=== PATIENT | female | born 1955 | race Caucasian/White ===

== ENCOUNTER 2021-12-25 13:16 | Outpatient (CLI) | payer MEDICARE, SELFPAY | END 2021-12-25 13:17 | disposition home or self-care (01) | LOC: ANHAUDASC 13:18 | PROVIDERS: PCP Internal Medicine; Visit Provider Otolaryngology | DX: H91.93 Unspecified hearing loss, bilateral (principal) | CPT/HCPCS: 92557; 92567 ==

== ENCOUNTER → 2022-01-29 13:47 | Outpatient (CLI) | payer MEDICARE, SELFPAY ==
--- NOTE | ~2022-01-29 | MM_ITS ---
EXAMINATION: MM screening luis a BI w young HISTORY: Screening TECHNIQUE: Craniocaudal and mediolateral oblique 3-D tomosynthesis images were obtained and synthetic 2-D images were generated. CAD analysis was submitted and interpreted. COMPARISON: No prior studies for comparison. BREAST PARENCHYMAL COMPOSITION: The breasts are heterogeneously dense, which may obscure small masses . FINDINGS: There are bilateral breast asymmetries inferiorly on MLO views and also superiorly on left MLO view. There are no suspicious calcifications. IMPRESSION: 1. Bilateral breast asymmetries. 2. Additional mammographic views and possible breast ultrasound are recommended. BI-RADS Category 0: Incomplete: Needs additional imaging evaluation. Reviewed, dictated and finalized at location A. IMPRESSION: 1. Bilateral breast asymmetries. 2. Additional mammographic views and possible breast ultrasound are recommended . BI-RADS Category 0: Incomplete: Needs additional imaging evaluation.
== END ==
PROVIDERS: PCP Internal Medicine; Visit Provider Obstetrics & Gynecology
DX: Z12.31 Encounter for screening mammogram for malignant neoplasm of breast (principal); R92.8 Other abnormal and inconclusive findings on diagnostic imaging of breast
CPT/HCPCS: 77063; 77067

== ENCOUNTER → 2022-02-20 08:02 | Outpatient (CLI) | payer MEDICARE, SELFPAY ==
--- NOTE | ~2022-02-20 | MMUS_ITS ---
EXAMINATION: MM diagnostic luis a BI w young, US breast BI complete HISTORY: Follow-up bilateral breast asymmetries TECHNIQUE: Additional 3-D tomosynthesis images of the breasts were performed and synthetic 2-D images were generated. CAD analysis was submitted and interpreted. High resolution bilateral complete breas t ultrasound was performed. COMPARISON: Comparison to multiple prior studies sequentially, with oldest reviewed study dated 05/29. BREAST PARENCHYMAL COMPOSITION: Breast composed of scattered areas of fibroglandular density. FINDINGS: MAMMOGRAPHIC FINDINGS: There are scattered nodular asymmetries in the right breast which are obscured by dense fibroglandula r tissue. There are new nodular asymmetries of the left breast superiorly and inferiorly on medial la teral view which are not well demonstrated on prior CC view. There are benign bilateral breast calcif ications. No architectural distortion. ULTRASOUND: Complete bilateral US of all 4 quadrants of the breasts and retroareolar region was reviewed. Right breast: There are multiple cysts. There is mildly prominent ducts at 7:00, 7 cm from the nipple . At 8:00, 6 cm from the nipple there is an oval hypoechoic mass measuring up to 5 mm without interna l vascularity or posterior features, likely benign. Left breast: At 1:00, 4 cm from the nipple, there is an oval hypoechoic mass without internal vascula rity or significant posterior features measuring 2-3 mm. At 3:00 near the areola there is a oval 4 mm hypoechoic mass with low level internal echoes, no internal vascularity. No significant posterior sh adowing. At 4:00, 4 cm from the nipple there is an oval hypoechoic mass with internal cystic changes, likely benign cluster of microcysts measuring up to 1 cm. This likely corresponds to the inferior le patricia seen on left medial lateral view. IMPRESSION: 1. Probable benign bilateral breast masses. 2. Recommend 6 month follow-up diagnostic bilateral mammogram and ultrasound. BI-RADS category 3, probably benign findings. Reviewed, dictated and finalized at location A. IMPRESSION: 1. Probable benign bilateral breast masses. 2. Recommend 6 month follow-up diagnostic bilateral mammogram and ultrasound. BI-RADS category 3, probably benign findings.
== END ==
PROVIDERS: PCP Internal Medicine; Visit Provider Obstetrics & Gynecology
DX: R92.8 Other abnormal and inconclusive findings on diagnostic imaging of breast (principal)
CPT/HCPCS: 76641; 77062; 77066; G0279

== ENCOUNTER → 2022-10-15 08:56 | Outpatient (CLI) | payer MEDICARE, SELFPAY ==
--- NOTE | ~2022-10-15 | MMUS_ITS ---
EXAMINATION: MM diagnostic luis a BI w young, US breast BI limited HISTORY: Follow-up for probably benign bilateral breast masses TECHNIQUE: Craniocaudal, mediolateral, and mediolateral oblique 3-D tomosynthesis images of the jc ts were performed and synthetic 2-D images were generated. CAD analysis was submitted and interpreted . High resolution limited bilateral breast ultrasound was performed. COMPARISON: 02/20/2022, 01/29/2022, 09/21/2020, 07/23/2019 BREAST PARENCHYMAL COMPOSITION: There are scattered areas of fibroglandular density. FINDINGS: MAMMOGRAPHIC FINDINGS: Obscured bilateral breast masses are stable to slightly decreased in size. None demonstrate suspiciou s interval change. No suspicious calcification or architectural distortion are identified. ULTRASOUND: Right breast: A 3 mm hypoechoic mass at 8:00 location, 6 cm from the nipple previously measured 5 mm. There is a stable 3 mm round mass at the 6:00 location, 4 cm from the nipple. Left breast: There is a stable 3 mm round mass at the 3:00 location near the nipple. A 9 mm x 3 mm ma ss at the 4:00 location, 4 cm from the nipple previously measured up to 10 mm. IMPRESSION: 1. Stable to decreased, probably benign bilateral breast masses. 2. Recommend 6 month follow-up bilateral diagnostic mammogram and ultrasound. BI-RADS category 3, probably benign findings. Reviewed, dictated and finalized at location A. IMPRESSION: 1. Stable to decreased, probably benign bilateral breast masses. 2. Recommend 6 month follow-up bilateral diagnostic mammogram and ultrasound. BI-RADS category 3, probably benign findings.
== END ==
PROVIDERS: PCP Internal Medicine; Visit Provider Obstetrics & Gynecology
DX: R92.8 Other abnormal and inconclusive findings on diagnostic imaging of breast (principal)
CPT/HCPCS: 76642; 77062; 77066; G0279

== ENCOUNTER → 2023-02-25 14:14 | Outpatient (CLI) | payer MEDICARE, SELFPAY ==
--- NOTE | ~2023-02-25 | MR_ITS ---
MRI of the cervical spine Clinical History: Cervical disc disorder Technique: Axial T2-weighted and gradient images, and sagittal T1-weighted, T2-weighted, and STIR la ges were acquired. Findings: There is no fracture. There is 2 mm anterolisthesis of C4 over C5. There is moderate degene rative disc narrowing at C5-C6 and C6-C7. No suspicious bone marrow signal reality evident. At C2-C3, there is no disc bulge or herniation. No spinal canal stenosis, cord compression, or neural foraminal narrowing. At C3-C4, there is no disc bulge or herniation. No central canal stenosis or cord compression. There is right facet arthropathy with possible minimal right neural foraminal narrowing. Left neural forame n preserved. At C4-C5, there is minimal disc osteophyte complex. No spinal canal stenosis or cord compression. The re is right neural foraminal narrowing with right facet arthropathy. Left neural foramen preserved. At C5-C6, there is mild disc osteophyte complex. There is possible minimal canal stenosis without fra nk cord compression. There is probable minimal bilateral neural foraminal narrowing with mild facet a rthropathy bilaterally. At C6-C7, there is minimal disc osteophyte complex. No canal stenosis or cord compression. There is p robable minimal bilateral neural foraminal narrowing. No abnormal signal evident in the spinal cord. Paravertebral soft tissues are unremarkable. Impression: Mild degenerative spondylosis, as above. 2 mm anterolisthesis of C4 over C5. Reviewed, dictated and finalized at [facility]. Impression: Mild degenerative spondylosis, as above. 2 mm anterolisthesis of C4 over C5.
== END ==
PROVIDERS: PCP Internal Medicine; Visit Provider Chiropractor
DX: M50.90 Cervical disc disorder, unspecified, unspecified cervical region (principal); M47.892 Other spondylosis, cervical region
CPT/HCPCS: 72141

== ENCOUNTER 2023-11-20 09:21 | Outpatient (CLI) | payer MEDICARE, SELFPAY ==
--- NOTE | 2023-11-20 09:35 | ECHO_ITS ---
Patient Info Name: Estefani Zamudio Age: 68 years : 1955 Gender: Female Ht: 62 in Wt: 136 lbs BSA: 1.65 m2 HR: 60 bpm BP: 122 / 63 mmHg Technical Quality: Good Exam Date: 11/20/2023 9:49 AM Exam Location: Echo Lab Patient Status: Outpatient Admit Date: 11/20/2023 Staff Ordering Physician: Paul Parra MD Courtesy Clerk: Tico Albright RDCS Attending Provider: Paul Parra MD Referring Physician: Aida MENA; Exam Type: CA echo doppler color flow Study Info Indications R01.1 - Cardiac murmur, unspecified Complete two-dimensional, color flow and Doppler transthoracic echocardiogram is performed. Summary 1. Complete two-dimensional, color flow and Doppler transthoracic echocardiogram is performed. 2. Left ventricular chamber dimension is normal. 3. Left ventricular systolic function is normal, estimated at 60-65%. 4. The left ventricular diastolic function is abnormal. 5. E/e' 11 is mildly elevated. 6. Left atrial chamber dimension is mildly enlarged. 7. There is trace tricuspid valve regurgitation. 8. No pulmonary hypertension, estimated pulmonary arterial systolic pressure is 11 mmHg. Left Ventricle E/e' 11 is mildly elevated. Left ventricular chamber dimension is normal. Left ventricular systolic function is normal, estimated at 60-65%. The left ventricular diastolic function is abnormal. Right Ventricle Right ventricular systolic function is normal and with normal TAPSE 1.8 cm. Right ventricular chamber dimension is normal. Left Atria Left atrial chamber dimension is mildly enlarged. Right Atria Right atrial chamber dimension is normal. Aortic Valve The aortic valve is trileaflet. There is no aortic valve stenosis. There is no aortic valve regurgitation. Pulmonic Valve There is no pulmonic regurgitation. Mitral Valve There is no mitral valve stenosis. There is no mitral valve regurgitation. Tricuspid Valve There is trace tricuspid valve regurgitation. No pulmonary hypertension, estimated pulmonary arterial systolic pressure is 11 mmHg. Pericardium/Pleural There is no pericardial effusion. Inferior Vena Cava Normal inferior vena cava with >50% collapse upon inspiration consistent with normal right atrial pressure, 5 mmHg. Aorta The aortic root size at the sinus of Valsalva is normal. Left Ventricular Outflow Tract Name Value Normal LVOT 2D LVOT Diameter 1.8 cm LVOT Doppler LVOT Peak Gradient 4 mmHg LVOT Mean Gradient 2 mmHg LVOT VTI 23 cm LVOT VTI/AV VTI Ratio 0.9 LVOT Stroke Volume 60 ml LVOT CO 3.8 l/min LVOT CI 2.3 l/min/m2 Pulmonic Valve Name Value Normal PV Doppler PV Peak Gradient 2 mmHg Mitral Valve
== END 2023-11-20 09:22 | disposition home or self-care (01) ==
PROVIDERS: PCP Internal Medicine; Visit Provider Internal Medicine
DX: I51.89 Other ill-defined heart diseases (principal); R01.1 Cardiac murmur, unspecified; Z86.79 Personal history of other diseases of the circulatory system
CPT/HCPCS: 93306

== ENCOUNTER 2024-08-22 14:59 | Outpatient (CLI) | payer MEDICARE, SELFPAY ==
--- NOTE | ~2024-08-22 | XR_ITS ---
EXAM: XR hand LT 2V, XR wrist LT 2V DATE: 08/22/2024 15:18 HISTORY: pain for a year; no injury . COMPARISON: None available. FINDINGS: Normal mineralization. Scapholunate widening. The scapholunate angle measures 100 degrees. No osseous fracture detected. No lytic or blastic lesion. Scattered mild arthritic changes in the morrison nd and wrist, typical of osteoarthritis. No erosion or periosteal change. Soft tissues within normal limits. IMPRESSION: Scapholunate ligament injury, with dorsal intercalated segment instability (DISI), presum ably chronic unless there is a history of recent injury. Reviewed, dictated and finalized at location K. CARRIER DRIVER IMPRESSION: Scapholunate ligament injury, with dorsal intercalated segment inst ability (DISI), presumably chronic unless there is a history of recent injury.
--- OUTSIDE RECORDS SUMMARY | 2024-08-22 17:31 | XMS_ITS | Referral Summary ---
Author Organization [facility] Address [address] [place] [address] Care Team Providers Care Size Mixer Name Role Phone Paul Parra MD Primary Care Provider [phone] Shlomo Woodard MD Unavailable [phone] Source Comments [facility],non-owned Affiliates and Associated Physician Practices is amultiple site organization consisting of ambulatory clinics and hospital sitesin [place], [place], [place] and [place]. This disclosure is being madepursuant to the Care Everywhere program and may not contain all information available regarding this patient. Last updated 18.[facility] Encounters Date Type Department Care Team Description 08/10/2024 Telephone [facility] [address] [place] [address], [address] [place] [phone] Shlomo Woodard MD Results (CA 125 normal ) 08/08/2024 Travel 08/08/2024 11:30 AM RIB PULLER Office Visit [facility] [address] [place] [address], [address] [place] [phone] Shlomo Woodard MD Ovarian mass, right (Primary Dx) 08/08/2024 11:00 AM RIB PULLER OBGYN RADIOLOGY [facility] [address] [place] [address], [address] [place] [address] Ovarian mass, right from Last 3 Months Allergies No known active allergies Medications * Be aware that medications may not be up to date on this document. Always verify current medications with the patient. Medication Sig Dispensed Refills Start Date End Date Status atenolol (TENORMIN) 25 MG tablet 07/04/2018 Active lamoTRIgine (LAMICTAL) 200 MG tablet 07/17/2019 Active Bempedoic Acid-Ezetimibe (NEXLIZET) 180-10 MG TABS Active omeprazole (PRILOSEC) 20 MG capsule 08/28/2021 Active clonazePAM (KlonoPIN) 1 MG tablet 01/16/2021 Active Femring 0.05 MG/24HR ringIndications:Menop ausal symptoms INSERT 1 RING VAGINALLY AND REPLACE EVERY 90 DAYS 1 Each 3 10/19/2023 Active Active Problems Problem Noted Date Diagnosed Date Menopausal symptoms 06/19/2016 Social History Tobacco Use Types Packs/Day Years Used Date Smoking Tobacco: Never Smokeless Tobacco: Never Tobacco Cessation:Counseling Given: Not Answered Alcohol Use Standard Drinks/Week Comments Yes 1 (1 standard drink = 0.6 oz pur e alcohol) PHQ-2 Answer Date Recorded Patient Health Questionnaire-2 Score 0 08/07/2024 Sex and Gender Information Value Date Recorded Sex Assigned at Not on file Gender Identity Not on file Sexual Orientation Not on file Last Filed Vital Signs Vital Sign Reading Time Taken Comments Blood Pressure 110/60 08/08/2024 11:31 AM RIB PULLER Pulse - - Temperature - - Respiratory Rate - - Oxygen Saturation - - Inhaled Oxygen Concentration - - Weight 61.7 kg (136 lb) 08/08/2024 11:31 AM RIB PULLER Height 157 cm (5' 1.81 ) 08/08/2024 11:31 AM RIB PULLER Body Mass Index 25.03 08/08/2024 11:31 AM RIB PULLER Plan of Treatment Upcoming Encounters Date Type Department Care Team (Late st Contact Info) Description 02/07/2025 11:00 AM CDT OBGYN RADIOLOGY [facility] [address] [place] [address], [address] [phone] 02/07/2025 11:30 AM CDT Office Visit [facility] [address] [place] [address], [address] [phone] Shlomo Woodard MD [address] [place] [address] [address] [place] [address] Procedures Procedure Name Priority Date/Time Associated Diagnosis Comments CANCER ANTIGEN (CA)125 BLOOD Routine 08/08/2024 12:00 PM RIB PULLER Ovarian mass, right NON-OB PELVIC SONOGRAM Routine 08/08/2024 11:08 AM RIB PULLER Ovarian mass, right MAMMO BILAT SCREENING Routine 11/11/2023 Well woman exam DEXA BONE DENSITY AXIAL SKELETON Routine 09/21/2020 Well woman exam from Last 3 Months or Most Recently Relevant to Health Maintenance Results * CANCER ANTIGEN (CA)125 BLOOD (08/08/2024 12:00 PM RIB PULLER) Pathologist [facility] CA 125 7.7 0.0 - 38.1 U/mL [facility] ACCOUNT BILL Comment: [facility] Electrochemiluminescence Immunoassay (ECLIA) Values obtained with different assay methods or kits cannot be used interchangeably. Results cannot be interpreted as absolute evidence of the presence or absence of malignant disease. Blood BLOOD SPECIMEN / Unknown 08/08/2024 12:00 PM RIB PULLER 08/08/2024 Narrative [facility] ACCOUNT BILL - 08/09/2024 1:07 PM RIB PULLER Performed at: [facility] [id number] System Developer Associate Manager: Bharat Ace PhD, Phone: [phone] Shlomo Woodard MD LAB - CHEMISTRY ORD ERABLES [facility] ACCOUNT BILL [address] [place] [address] * NON-OB PELVIC SONOGRAM (08/08/2024 11:08 AM RIB PULLER) Linked Results Indication ======== Post menopausal. Follow-up on ovarian cyst Method ====== Transabdominal and transvaginal ultrasound Uterus ====== Visualized total hysterectomy noted Position: surgically absent Right Ovary ========= Visualized. Size 25 mm x 15 mm x 10 mm Cyst(s) Size 7.4 mm x 9.0 mm x 9.0 mm. Mean 8.5 mm. Vol 0.314 cm Left Ovary ======== Not visualized, Surgically absent Cul de Sac ========= Visualized. No free fluid visualized Impression ========= The uterus is not seen today consistent with her history of prior surgical removal. The left ovary is not seen today consistent with her history or prior surgical removal. The right ovary is seen normal in size and contains a small anechoic cystic mass that has a benign appearance based on negative color doppler flow. There is no free fluid present in the cul de sac. Coding ====== Procedures 19729: US Transvaginal Non OB [employer] PACS Anatomical Region Laterality Modality Other 08/08/2024 11:0 8 AM RIB PULLER Shlomo Woodard MD [facility] ORDERABLES * MAMMO BILAT SCREENING (11/11/2023) Anatomical Region Laterality Modality Breast Bilateral Mammography 11/11/2023 Shlomo Woodard MD MAMMO ORDERABLES * DEXA BONE DENSITY AXIAL SKELETON (09/21/2020) Anatomical Region Laterality Modality Other Shlomo Woodard MD DEXA ORDERABLES from Last 3 Months or Most Recently Relevant to Health Maintenance Care Teams Size Mixer Relationship Specialty Start Date End Date Paul Parra MD [address] [place] [address] PCP - General Internal Medicine 06/19/16 Shlomo Woodard MD [address] [phone] Obstetrics and Gynecology 01/14/21
--- OUTSIDE RECORDS SUMMARY | 2024-08-22 17:31 | XMS_ITS | Clinical Summary ---
Author Organization [facility] Address [address] [place] [address] Phone Care Team Providers Care Reservoir Engineering Consultant Name Role Phone Shlomo Woodard MD Primary Care Provider Allergies No known active allergies Medications NIACIN/LOVASTAT IN (ADVICOR PO) Take by mouth. Active ATENOLOL (TENORMIN PO) Take by mouth. Active FLUOXETINE HCL (FLUOXETINE PO) Take by mouth. Active CLONAZEPAM (KLONOPIN PO) Take by mouth. Active predniSONE (DELTASONE) 5 mg tablet Take 2 tablets by mouth on days 1-4, then take 1 tablet by mouth on days 5-7. Take in the morning. 11 Tablet 11/28/2021 9:30 AM CDT 11/28/2021 Active neomycin-polymy israel-dexAMETHaso ne (Maxitrol) 3.5mg/mL-10,000 unit/mL-0.1 % suspension Instill 1 drop into both eyes three times a day shake well 5 mL 01/08/2023 4:40 PM CDT 01/08/2023 Active fluorometholone (FML) 0.1 % suspension Instill 1 drop into both eyes twice a day. SHAKE WELL 5 mL 02/09/2023 2:24 PM CDT 02/09/2023 Active Active Problems Patient Care Coordination No te Formatting of this note migh t be different from the original. Primary Care: Shlomo Woodard MD Referring Provider:Azar Contreras Other: Problem Noted Date Diagnosed Date Abnormal mammogram, unspecified 04/30/2009 HTN (hypertension) Anxiety MVP (mitral valve prolapse) Family History Medical History Relation Name Comments Heart Disease Father Stroke Father Heart Disease Mother Hypertension Mother Relation Name Status Comments Father Mother Alive Social History Tobacco Use Types Packs/Day Years Used Date Smoking Tobacco: Never Alcohol Use Standard Drinks/Week Comments Yes 0 (1 standard drink = 0.6 oz pur e alcohol) rarely Comments No Sex and Gender Information Value Date Recorded Sex Assigned at Not on file Legal Sex Female 5:48 AM APPEALS ANALYST Gender Identity Not on file Sexual Orientation Not on file Last Filed Vital Signs Vital Sign Reading Time Taken Comments Blood Pressure 128/70 04/30/2009 10:07 AM APPEALS ANALYST Pulse - - Temperature - - Respiratory Rate - - Oxygen Saturation - - Inhaled Oxygen Concentration - - Weight 63.5 kg (140 lb) 04/30/2009 10:07 AM APPEALS ANALYST Height 157.5 cm (5' 2 ) 04/30/2009 10:07 AM APPEALS ANALYST Body Mass Index 25.61 04/30/2009 10:07 AM APPEALS ANALYST Plan of Treatment Health Maintenance Due Date Last Done Comments DTAP/TDAP/TD VACCINES (1 - Tdap) 09/24/1974 COLORECTAL SCREENING 09/24/2000 Colorectal Cancer Screening 09/24/2000 FIT-DNA Q 3 years 09/24/2000 FIT/FOBT Q 1 year 09/24/2000 Flex Sig/CT Colonography Q 5 years 09/24/2000 PNEUMOCOCCAL VACCINE 65+ YEA RS (1 of 1 - PCV) 09/24/2005 ZOSTER VACCINE (1 of 2) 09/24/2005 BREAST CANCER SCREENING 04/30/2010 04/30/20, 04/16/2009, 11/17/2007, Additional history exists OSTEOPOROSIS SCREENING 09/24/2020 INFLUENZA VACCINE (#1) 2024 RSV VACCINE (60+ or ) (1 - 1-dose 75+ series) 09/24/2030 Procedures Procedure Name Priority Date/Time Associated Diagnosis Comments MAMMO DIAGNOSTIC UNI RIGHT W OR WO CAD Routine 04/30/2009 from Last 3 Months or Most Recently Relevant to Health Maintenance Results * MAMMO DIGITAL DIAG UNI RIGHT (04/30/2009) Anatomical Region Laterality Modality Breast Right Other us Alicia Schaeffer MD MAMMO ORDERABLES Final Resul t from Last 3 Months or Most Recently Relevant to Health Maintenance Insurance RX [employer] RX Member Subscriber Plan / Payer (Ef fective 2021-Present) Name:KAMRAN PRITCHARD Relation to Subscriber:Self Name:Fran Pritchardu Payer ID:Not on file Group ID:[id number] Type:RX Medicare Part D Address: [address] Care Teams Reservoir Engineering Consultant Relationship Specialty Start Date End Date Shlomo Woodard MD PCP - General 05/08/15
--- OUTSIDE RECORDS SUMMARY | 2024-08-22 17:31 | XMS_ITS | Clinical Summary ---
Author Organization [address] Address [address] [place] [phone] Care Team Providers Care Airframe Design Engineer Name Role Phone Paul Parra MD Primary Care Provider [phone] Social History Tobacco Use Types Packs/Day Years Used Date Smoking Tobacco: Never Assessed Personal Safety Answer Date Recorded Getting School Help Needed Not on file 09/11 Comments Unknown Sex and Gender Information Value Date Recorded Sex Assigned at Not on file Legal Sex Female 12:44 AM BASKETBALL COACH Gender Identity Not on file Sexual Orientation Not on file Plan of Treatment Not on file Insurance MEDICARE [facility] MED[facility] Address: [address] [phone] Care Teams Airframe Design Engineer Relationship Specialty Start Date End Date Paul Parra MD [address] [place] [address] PCP - General Internal Medicine 01/16/23
--- OUTSIDE RECORDS SUMMARY | 2024-08-22 17:31 | XMS_ITS | Referral Summary ---
Author Organization [address] Address [address] [place] [phone] Care Team Providers Care Street Department Dispatcher Name Role Phone Paul Parra MD Primary Care Provider [phone] Social History Tobacco Use Types Packs/Day Years Used Date Smoking Tobacco: Never Assessed Personal Safety Answer Date Recorded Getting School Help Needed Not on file 09/11 Comments Unknown Sex and Gender Information Value Date Recorded Sex Assigned at Not on file Legal Sex Female 12:44 AM MANAGER STATISTICS Gender Identity Not on file Sexual Orientation Not on file Plan of Treatment Not on file Insurance MEDICARE [facility] MEDICARE Address: [address] [address] Department Dispatcher Relationship Specialty Start Date End Date Paul Parra MD [address] [place] [address] PCP - General Internal Medicine 01/16/23
--- OUTSIDE RECORDS SUMMARY | 2024-08-22 17:31 | XMS_ITS | Clinical Summary ---
Author Organization [facility] I Do Now I Don't Address [address] [place] [address] Care Team Providers Care Dry Wall Applicator Name Role Phone Paul Parra MD Primary Care Provider [phone] Shlomo Woodard MD Unavailable [phone] Source Comments [facility],non-owned Affiliates and Associated Physician Practices is amultiple site organization consisting of ambulatory clinics and hospital sitesin [place], [place], [place] and [place]. This disclosure is being madepursuant to the Care Everywhere program and may not contain all information available regarding this patient. Last updated 18.[facility] Allergies No known active allergies Medications * Be aware that medications may not be up to date on this document. Alwaysverify current medications with the patient. Medication Sig [...] Noted Date Diagnosed Date Menopausal symptoms 06/19/2016 Encounters Date Type Department Care Team Description 08/10/2024 Telephone [facility] - [employer] [address], [address] [address] Shlomo Woodard MD Results (CA 125 normal ) 08/08/2024 11:30 AM MEDICARE BILLER Office Visit [facility] [employer] SCI[employer]ER[address], [address] [address] Shlomo Woodard MD Ovarian mass, right (Primary Dx) 08/08/2024 11:00 AM MEDICARE BILLER OBGYN RADIOLOGY [facility] [employer]ER[address], [address] [address] Ovarian mass, right 08/08/2024 Travel from Last 3 Months Social History Tobacco Use Types Packs/Day Years [...] Comments Blood Pressure 110/60 08/08/2024 11:31 AM MEDICARE BILLER Pulse - - Temperature - - Respiratory Rate - - Oxygen Saturation - - Inhaled Oxygen Concentration - - Weight 61.7 kg (136 lb) 08/08/2024 11:31 AM MEDICARE BILLER Height 157 cm (5' 1.81 ) 08/08/2024 11:31 AM MEDICARE BILLER Body Mass Index 25.03 08/08/2024 11:31 AM MEDICARE BILLER Plan of Treatment Upcoming Encounters Date Type Department Care Team (Late st Contact Info) Description 02/07/2025 11:00 AM CDT OBGYN RADIOLOGY [facility] - [employer]ER[address], [address] [address] 02/07/2025 11:30 AM CDT Office Visit [facility] [employer] SCI[employer]ER[address], [address] [address] Shlomo Woodard MD [address] [place] [address] Health Maintenance Due Date Last Done Comments COLOGUARD (AGES 45-75) - COLON CA SCREENING 1955 COLON MONITORING 1955 COLONOSCOPY - COLON CA SCREENING 1955 CT COLONOGRAPHY - COLON CA SCREENING 1955 Colorectal Cancer Screening 1955 FIT - COLON CA SCREENING 1955 FLEX SIG - COLON CA SCREENING 1955 LIPID TESTING 1955 HEPATITIS C SCREENING 09/20/1973 DTAP/TDAP/TD VACCINES (1 - Tdap) 09/24/1974 PNEUMOCOCCAL VACCINE 50+ (1 of 1 - PCV) 09/24/2005 ZOSTER VACCINE (1 of 2) 09/24/2005 SCREENING FOR DIABETES 10/19/2023 COVID-19 VACCINE (1 - season) 2024 INFLUENZA VACCINE (#1) 2024 MEDICARE AWV CALENDAR YEAR 2024 MAMMOGRAM 11/10/2025 11/11/2023, 10/27, 11/11/2023, Additional history exists Respiratory Syncytial Virus (RSV) Vaccine Pt: or over 60 yrs (1 - 1-dose 75+ series) 09/24/2030 BONE DENSITY TESTING Completed 09/21/2020 DEPRESSION SCREENING Completed 08/08/2024, 08/10/2023, 07/21/2022, Additional history exists HEPATITIS B VACCINE Aged Out No longe r eligible based on patient's age to complete this topic HIB VACCINE Aged Out No longer eligi ble based on patient's age to complete this topic HPV VACCINE Aged Out No longer eligi ble based on patient's age to complete this topic MENINGOCOCCAL (Group B) VACCINE Aged Out No longer eligible based on patient's age to complete this topic MENINGOCOCCAL VACCINE Aged Out No annie carroll eligible based on patient's age to complete this topic Procedures Procedure Name Priority Date/Time Associated Diagnosis Comments CANCER ANTIGEN (CA)125 BLOOD Routine 08/08/2024 12:00 PM MEDICARE BILLER Ovarian mass, right NON-OB PELVIC SONOGRAM Routine 08/08/2024 11:08 AM MEDICARE BILLER Ovarian mass, right MAMMO BILAT SCREENING Routine 11/11/2023 Well woman exam DEXA BONE DENSITY AXIAL SKELETON Routine 09/21/2020 Well woman exam from Last 3 Months or Most Recently Relevant to Health Maintenance Results * CANCER ANTIGEN (CA)125 BLOOD (08/08/2024 12:00 PM MEDICARE BILLER) Pathologist [facility] [place] 125 7.7 0.0 - 38.1 U/mL [facility] ACCOUNT BILL Comment: [facility] Electrochemiluminescence Immunoassay (ECLIA) Values obtained with different assay methods or kits cannot be used interchangeably. Results cannot be interpreted as absolute evidence of the presence or absence of malignant disease. Blood BLOOD SPECIMEN / Unknown 08/08/2024 12:00 PM MEDICARE BILLER 08/08/2024 Narrative [facility] ACCOUNT BILL - 08/09/2024 1:07 PM MEDICARE BILLER Performed at: - Lab[address] [id number] Thread Dresser: Bharat Ace PhD, Phone: [phone] Shlomo Woodard MD LAB - CHEMISTRY ORD ERABLES [facility] ACCOUNT BILL [address] [place] [address] * NON-OB PELVIC SONOGRAM (08/08/2024 11:08 AM MEDICARE BILLER) Pathologist [facility] Linked Results Indication ======== Post menopausal. Follow-up [...] the [place]. Coding ====== Procedures 86073: US Transvaginal Non OB [facility] PACS Anatomical Region Laterality Modality Other 08/08/2024 11:0 8 AM MEDICARE BILLER Shlomo Woodard MD [facility] ORDERABLES * MAMMO BILAT SCREENING (11/11/2023) Anatomical Region Laterality Modality Breast Bilateral Mammography 11/11/2023 Shlomo Woodard MD MAMMO ORDERABLES * DEXA BONE DENSITY AXIAL SKELETON (09/21/2020) Anatomical Region Laterality Modality Other Shlomo Woodard MD DEXA ORDERABLES from Last 3 Months or Most Recently Relevant to Health Maintenance Care Teams Dry Wall Applicator Relationship Specialty Start Date End Date Paul Parra MD [address] [place] [phone] PCP - General Internal Medicine 06/19/16 Shlomo Woodard MD [address] [facility] [address] [place] [address] Obstetrics and Gynecology 01/14/21
--- OUTSIDE RECORDS SUMMARY | 2024-08-22 17:31 | XMS_ITS | Clinical Summary ---
Author Organization [facility] Address [address] [place] [address] Care Team Providers Care Director Of Marketing Communications Name Role Phone Paul Parra MD Primary Care Provider [phone] Social History Tobacco Use Types Packs/Day Years Used Date Smoking Tobacco: Never Assessed Comments Unknown Sex and Gender Information Value Date Recorded Sex Assigned at Not on file Legal Sex Female 11:54 AM CDT Gender Identity Not on file Sexual Orientation Not on file Plan of Treatment Health Maintenance Due Date Last Done Comments Colorectal Cancer Screening Colonoscopy (10 Years) 1955 Hepatitis C 09/24/1973 DTaP, Tdap and Td Vaccines ( 1 - Tdap) 09/24/1974 Zoster Vaccines (1 of 2) 09/24/2005 Annual Medicare Wellness Visit 09/24/2020 Dexa Scan (General) 09/24/2020 Pneumococcal Vaccine: 65+ Ye ars (1 of 1 - PCV) 09/24/2020 COVID-19 Vaccine ( - 2023-2 5 season) 2024 Influenza Adult (#1) 2024 Mammogram Screening 11/10/2025 11/11/2023 RSV Immunization or 60+ Years (1 - 1-dose 75+ series) 09/24/2030 Meningococcal B Vaccine Aged Out No l onger eligible based on patient's age to complete this topic Meningococcal Vaccine Aged Out No annie carroll eligible based on patient's age to complete this topic RSV Immunizations Under 20 Months Aged Out No longer eligible based on patient's age to complete this topic Procedures Procedure Name Priority Date/Time Associated Diagnosis Comments MG SCREENING W ELEANOR HUNG DIGI Routine 11/11/2023 3:34 PM CDT Visit for screening mammogram from Last 3 Months or Most Recently Relevant to Health Maintenance Results * MG SCREENING W ELEANOR HUNG FLORINDAI (11/11/2023 3:34 PM CDT) Anatomical Region Laterality Modality Breast Bilateral Mammography 11/11/2023 4:41 PM CDT Impressions 11/11/2023 4:48 PM CDT ===== IMPRESSION: ===== 1. Stable mammographic appearance with no new findings to suggest malignancy in either breast. Assessment: ACR BI-RADS 2 - BENIGN FINDING(S) Recommendation: 1:Routine Screening Bilateral Comments: Ordered By: KALEB RODRIGUEZ Interpreted By: Jaclyn Hearn, 11/11/2023 4:41 PM Narrative 11/11/2023 4:48 PM CDT EXAMINATION: Digital bilateral screening mammogram with 3-D tomosynthesis EXAM DATE/TIME: 11/11/2023 3:25 PM REASON FOR EXAM: Routine screening Breast reduction in 2008. COMPARISON: 10/15/2022.. 02/25/2022 Technique: Digital screening mammography of both breasts was performed in addition to 3-D Tomosynthesis technique. This study was read with the assistance of a computer-aided detection system. Tissue density: There are scattered areas of fibroglandular density. Findings: There is no new focal asymmetry, dominant mass lesion, area of skin thickening, or cluster of suspicious appearing calcifications in either breast to suggest malignancy. us Kaleb Rodriguez MD MAMMO Final Resul t from Last 3 Months or Most Recently Relevant to Health Maintenance Insurance [facility] Care Teams Director Of Marketing Communications Relationship Specialty Start Date End Date Paul Parra MD [address] [place] [phone] PCP - General INTERNAL MEDICINE 10/08/23
--- OUTSIDE RECORDS SUMMARY | 2024-08-22 17:31 | XMS_ITS | Continuity of Care Document ---
Author Organization [facility] Address [address] [place] [address] Phone Care Team Providers Care Venetian Blind Installer Name Role Phone Sue OD, Heraclio Unavailable Unavailable Advance Directives Directive Yes / No Effective Date File Name No Information Encounters Encounter Description Practice Location Reason(s) For Visit Diagnoses Date Provider Providers Copied on Encounter [facility], [address], [place], [place], [id number], [place] tel:[phone] [facility] [place] No Information [phone] Sue OD Heraclio. [address] , [address], [place], [address], [place]. tel:[phone] Family History Family Member Type Diagnosis Age At Onset No Information Payers Payer name Insurance type Covered libertarian ID Authoriza tion(s) No Information Social History Type Description Quantity Date Captured Comments Sex Female Smoking Status No Information Chief Complaint And Reason For Visit No Information Reason For Referral Reason For Referral No Information History Of Present Illness Encounter Date Complaint History Of Prese nt Illness No Information Functional Status Date Functional Assessmen t No Information Instructions Date Instruction Additional Infor mation No Information Assessments Type Assessment Date No Information Patient Care Teams Name Effective Dates (start - stop) Status Members No Information
--- OUTSIDE RECORDS SUMMARY | 2024-08-22 17:31 | XMS_ITS | Patient Health Summary ---
Author Organization [facility] Address [address] [place] [address] Care Team Providers Care Configuration Technician Name Role Phone Paul Parra MD Primary Care Provider [phone] Shlomo Woodard MD Unavailable [phone] Note from [facility],non-owned Affiliates and Associated Physician Practices is amultiple site organization consisting of ambulatory clinics and hospital sitesin [place], [place], [place] and [place]. This disclosure is being madepursuant to the Care Everywhere program and may not contain all information available regarding this patient. Last updated 18.[facility] Allergies No known active allergies Medications * Be aware that medications may not be up to date on this document. Alwaysverify current medications with the patient. * atenolol (TENORMIN) 25 MG tablet(Started 07/04/2018) * lamoTRIgine (LAMICTAL) 200 MG tablet(Started 07/17/2019) * Bempedoic Acid-Ezetimibe (NEXLIZET) 180-10 MG TABS * omeprazole (PRILOSEC) 20 MG capsule(Started 08/28/2021) * clonazePAM (KlonoPIN) 1 MG tablet(Started 01/16/2021) * Femring 0.05 MG/24HR ring(Started 10/19/2023) INSERT 1 RING VAGINALLY AND REPLACE EVERY 90 DAYS 3 refills by 10/18/2024 Active Problems Problem Noted Date Diagnosed Date [...] Comments Blood Pressure 110/60 08/08/2024 11:31 AM ALL TERRAIN VEHICLE TECHNICIAN Pulse - - Temperature - - Respiratory Rate - - Oxygen Saturation - - Inhaled Oxygen Concentration - - Weight 61.7 kg (136 lb) 08/08/2024 11:31 AM ALL TERRAIN VEHICLE TECHNICIAN Height 157 cm (5' 1.81 ) 08/08/2024 11:31 AM ALL TERRAIN VEHICLE TECHNICIAN Body Mass Index 25.03 08/08/2024 11:31 AM ALL TERRAIN VEHICLE TECHNICIAN Procedures * CANCER ANTIGEN (CA)125 BLOOD(Performed 08/08/2024) Performed for Ovarian mass, right * NON-OB PELVIC SONOGRAM(Performed 08/08/2024) Performed for Ovarian mass, right * US TRANSVAGINAL NON OB(Performed 02/08/2024) Performed for Ovarian mass, right * MAMMO BILAT SCREENING(Performed 11/11/2023) Performed for Well woman exam * PAP IG LB(Performed 10/19/2023) Performed for Well woman exam * OCCULT BLOOD FECES 1-3 SCREEN POINT OF CARE (AMB)(Performed 10/19/2023) Performed for Colon cancer screening * CANCER ANTIGEN (CA)125 BLOOD(Performed 08/10/2023) Performed for Ovarian mass, right * US TRANSVAGINAL NON OB(Performed 08/10/2023) Performed for Ovarian mass, right * US TRANSVAGINAL NON OB(Performed 01/19/2023) Performed for Ovarian mass, right * MAMMO BILAT DIAGNOSTIC(Performed 10/15/2022) Performed for Abnormal mammogram * CANCER ANTIGEN (CA)125 BLOOD(Performed 08/12/2022) Performed for Ovarian mass, right * US TRANSVAGINAL NON OB(Performed 07/21/2022) Performed for Ovarian mass, right * US TRANSVAGINAL NON OB(Performed 04/21/2022) Performed for Ovarian mass, right * MAMMO BILAT DIAGNOSTIC(Performed 02/20/2022) Performed for Abnormal mammogram of both breasts * MAMMOGRAM(Performed 01/29/2022) * MAMMOGRAM(Performed 01/29/2022) * MAMMO BILAT SCREENING(Performed 01/29/2022) Performed for Well woman exam * CANCER ANTIGEN (CA)125 BLOOD(Performed 10/14/2021) Performed for Ovarian mass, right * OCCULT BLOOD FECES 1-3 SCREEN POINT OF CARE (AMB)(Performed 10/14/2021) Performed for Colon cancer screening * PAP IG LB(Performed 10/14/2021) Performed for Well woman exam * US TRANSVAGINAL NON OB(Performed 10/14/2021) Performed for Ovarian mass, right * CANCER ANTIGEN (CA)125 BLOOD(Performed 01/16/2021) Performed for Ovarian mass, right * US TRANSVAGINAL NON OB(Performed 01/16/2021) Performed for Ovarian mass, right * MAMMO BILAT SCREENING(Performed 09/21/2020) Performed for Well woman exam * DEXA BONE DENSITY AXIAL SKELETON(Performed 09/21/2020) Performed for Well woman exam * OCCULT BLOOD FECES 1-3 SCREEN POINT OF CARE (AMB)(Performed 07/19/2020) Performed for Colon cancer screening * PAP IG LB+HPV APTIMA(Performed 07/19/2020) Performed for Well woman exam * US TRANSVAGINAL NON OB(Performed 07/19/2020) Performed for Ovarian mass, right * CANCER ANTIGEN (CA)125 BLOOD(Performed 01/20/2020) Performed for Ovarian mass, right * US TRANSVAGINAL NON OB(Performed 01/16/2020) Performed for Ovarian mass, right * MAMMO BILAT SCREENING(Performed 07/23/2019) Performed for Well woman exam * PAP IG LB + HPV HR(Performed 07/18/2019) Performed for Well woman exam * US TRANSVAGINAL NON OB(Performed 07/18/2019) Performed for Ovarian mass, right * OCCULT BLOOD FECES 1-3 SCREEN POINT OF CARE (AMB)(Performed 07/18/2019) Performed for Colon cancer screening * CANCER ANTIGEN (CA)125 BLOOD(Performed 01/12/2019) Performed for Ovarian mass, right * US TRANSVAGINAL NON OB(Performed 01/12/2019) Performed for Ovarian mass, right * PAP IG LB + HPV HR(Performed 07/15/2018) Performed for Well woman exam * US TRANSVAGINAL NON OB(Performed 07/15/2018) Performed for Ovarian mass, right * WET PREP SMEAR - POINT OF CARE(Performed 07/15/2018) Performed for Vaginal discharge * OCCULT BLOOD FECES 1-3 SCREEN POINT OF CARE (AMB)(Performed 07/15/2018) Performed for Colon cancer screening * CANCER ANTIGEN (CA)125 BLOOD(Performed 01/13/2018) Performed for Ovarian mass, right * US TRANSVAG ONLY(Performed 01/13/2018) Performed for Ovarian mass, right * PAP IG LB + HPV HR(Performed 07/13/2017) Performed for Well woman exam * US TRANSVAG ONLY(Performed 07/13/2017) Performed for Ovarian mass, right * OCCULT BLOOD FECES 1-3 SCREEN POC (AMB) STL(Performed 07/13/2017) Performed for Colon cancer screening * US TRANSVAG ONLY(Performed 02/09/2017) Performed for Ovarian mass, right * US TRANSVAG ONLY(Performed 11/03/2016) Performed for Ovarian mass, right * US TRANSVAG ONLY(Performed 08/18/2016) Performed for Ovarian mass, right * CANCER ANTIGEN (CA)125 BLOOD(Performed 07/07/2016) Performed for Ovarian mass, right * US PELVIS COMPLETE(Performed 07/07/2016) Performed for Right lower quadrant abdominal pain, Pelvic pain in female * PAP IG LB + HPV HR(Performed 06/19/2016) Performed for Well woman exam * OCCULT BLOOD FECES 1-3 SCREEN POC (AMB) STL(Performed 06/19/2016) Performed for Colon cancer screening * MAMMO SCREENING BILATERAL(Performed 06/06/2016) Results * CANCER ANTIGEN (CA)125 BLOOD (08/08/2024 12:00 PM ALL TERRAIN VEHICLE TECHNICIAN) Only the most recent of9 resultswithin the time period is included. CA 125 7.7 0.0 - 38.1 U/mL [facility] ACCOUNT BILL Comment: [employer] Electrochemiluminescence Immunoassay (ECLIA) Values obtained with different assay methods or kits cannot be used interchangeably. Results cannot be interpreted as absolute evidence of the presence or absence of malignant disease. Blood BLOOD SPECIMEN / Unknown 08/08/2024 12:00 PM ALL TERRAIN VEHICLE TECHNICIAN 08/08/2024 Narrative [facility] ACCOUNT BILL - 08/09/2024 1:07 PM ALL TERRAIN VEHICLE TECHNICIAN Performed at: 01 - [facility] [address], [place] [id number] Cut Off Machine Operator: Bharat Ace PhD, Phone: [phone] Shlomo Woodard MD LAB - CHEMISTRY ORD ERABLES [facility] ACCOUNT [place] [address] * NON-OB PELVIC SONOGRAM (08/08/2024 11:08 AM ALL TERRAIN VEHICLE TECHNICIAN) Linked Results Indication ======== Post menopausal. Follow-up [...] the cul de sac. Coding ====== Procedures [id number]: US Transvaginal Non OB [facility] [employer] PACS Anatomical Region Laterality Modality Other 08/08/2024 11:0 8 AM ALL TERRAIN VEHICLE TECHNICIAN Shlomo Woodard MD [facility] ORDERABLES * US Transvaginal Non Ob (02/08/2024 2:39 PM CDT) Only the most recent of12 resultswithin the time period is included. Anatomical Region Laterality Modality Abdomen Ultrasound Narrative 02/08/2024 2:39 PM CDT Shlomo Woodard MD 02/08/2024 3:[address] [facility] MANAGER OF ALLIED HEALTH SERVICES [employer] PELVIC ULTRASOUND Patient Name: Estefani Zamudio Study Date: 02/08/2024 , Age: 3 1955, 68 year old BMI: 25.21 LMP: No LMP recorded. Patient has had a hysterectomy. History/Indication: right ovarian cyst CPT-4: 69192 Latex allergy: No Transabdominal: No Transvaginal: Yes Uterine orientation: Surg absent Left Ovary: Surg absent Right Ovary: Length 2.57 cm Width 0.98 cm Height 1.72 cm Volume 2.268 cc Fluid in Cul de Sac: No Asp Developer Comments: The right ovary contains a 1.0 x 0.8 x 1.0 cm anechoic mass. Negative color doppler. Asp Developer: Gloria Hua, RT(R), [facility] Images will be scanned into the record. Physician Interpretation: The uterus is not seen consistent with her history of previous surgically removal. The left ovary is not seen today consistent with her history of prior surgical removal. The right ovary is seen and is normal in size and contains a small anechoic mass measuring 1.0 by 0.8 by 1.0 cm. The mass has a benign appearance based on negative doppler color flow. There is no free fluid present in the pelvis. Interpreting Physician: Ravinder Woodard MD Procedure Note Gloria Hua - 02/08/2024 2:[address] [facility] MANAGER OF ALLIED HEALTH SERVICES [employer] PELVIC ULTRASOUND Patient Name: Estefani Zamudio Study Date: 02/08/2024 , Age: 3 1955, 68 year old BMI: 25.21 LMP: No LMP recorded. Patient has had a hysterectomy. History/Indication: right ovarian cyst CPT-4: 12746 Latex allergy: No Transabdominal: No Transvaginal: Yes Uterine orientation: Surg absent Left Ovary: Surg absent Right Ovary: Length 2.57 cm Width 0.98 cm Height 1.72 cm Volume 2.268 cc Fluid in Cul de Sac: No Asp Developer Comments: The right ovary contains a 1.0 x 0.8 x 1.0 cmanechoic mass. Negative color doppler. Asp Developer: RT Edith(R), [facility] Images will be scanned into the record. Physician Interpretation: The uterus is not seen consistent with herhistory of previous surgically removal. The left ovary is not seen todayconsistent with her history of prior surgical removal. The right ovary isseen and is normal in size and contains a small anechoic mass measuring1.0 by 0.8 by 1.0 cm. The mass has a benign appearance based on negativedoppler color flow. There is no free fluid present in the pelvis. Interpreting Physician: Ravinder Woodard MD Shlomo Woodard MD US ORDERABLES * MAMMO BILAT SCREENING (11/11/2023) Only the most recent of4 resultswithin the time period is included. Anatomical Region Laterality Modality Breast Bilateral Mammography 11/11/2023 Shlomo Woodard MD MAMMO ORDERABLES * PAP IG LB (10/19/2023 4:13 PM CDT) Only the most recent of2 resultswithin the time period is included. Diagnosis [facility] ACCOUNT BILL Comment:NEGATIVE FOR INTRAEP ITHELIAL LESION OR MALIGNANCY. Specimen Adequacy [facility] ACCOUNT BILL Comment:Satisfactory for dang luation. No endocervical component is identified. Clinician Provided ICD10 [facility] ACCOUNT BILL Comment: Z01.419 N95.1 Z12.11 Performed by [facility] ACCOUNT BILL Comment:Jorge Baum, Cyto technologist (ASCP) Comment . [facility] ACCOUNT BILL Note [facility] ACCOUNT BILL Comment: The Pap smear is a screening test designed to aid in the detection of premalignant and malignant conditions of the uterine cervix. It is not a diagnostic procedure and should not be used as the sole means of detecting cervical cancer. Both false-positive and false-negative reports do occur. . IGLBP CPT Code Automation [facility] ACCOUNT BILL Comment: This liquid based ThinPrep(R) pap test was screened with the use of an image guided system. Pathology/Cytolog y ENTIRE VAGINA / Unknown 10/19/2023 4:13 PM CDT 10/20/2023 Narrative [facility] ACCOUNT BILL - 10/22/2023 10:12 AM CDT No. of containers..01 ThinPrep Vial Resulting Agency Comment Lab Testing performed at: [facility] [address] [place] [id number] Shlomo Woodard MD LAB - PATHOLOGY/CYT OLOGY ORDERABLES [facility] ACCOUNT BILL [address] [place] [address] * OCCULT BLOOD FECES 1-3 SCREEN POINT OF CARE (AMB) (10/19/2023 4:01 PM CDT) Only the most recent of5 resultswithin the time period is included. Occult Blood 1 neg Negative [facility] Occult Blood 2 [facility] Occult Blood 3 [facility] Card Lot Number [facility] Card Exp Date [facility] Developer Lot Number [facility] Developer Expiration Date [facility] QC Negative [facility] QC Positive [facility] Stool STOOL SPECIMEN / Unknown 10/19/2023 4:01 PM CDT Shlomo Woodard MD LAB - POINT OF CARE ORDERABLES [facility] [address] , [facility] [address] [place] [address], [facility] [phone] * MAMMO BILAT DIAGNOSTIC (10/15/2022) Only the most recent of2 resultswithin the time period is included. Anatomical Region Laterality Modality Breast Bilateral Mammography 10/15/2022 Shlomo Woodard MD MAMMO ORDERABLES * MAMMOGRAM (01/29/2022) Only the most recent of2 resultswithin the time period is included. Anatomical Region Laterality Modality Other 01/29/2022 Narrative 01/29/2022 Ordered by an unspecified provider. Scanned Document SCANNING ONLY * DEXA BONE DENSITY AXIAL SKELETON (09/21/2020) Anatomical Region Laterality Modality Other Shlomo Woodard MD DEXA ORDERABLES * PAP IG LB+HPV APTIMA (07/19/2020 3:57 PM ALL TERRAIN VEHICLE TECHNICIAN) Diagnosis [facility] ACCOUNT BILL Comment:NEGATIVE FOR INTRAEP ITHELIAL LESION OR MALIGNANCY. Specimen Adequacy [facility] ACCOUNT BILL Comment:Satisfactory for dang luation. No endocervical component is identified. Clinician Provided ICD10 [facility] ACCOUNT BILL Comment: N83.8 N95.1 Z01.419 Z12.11 Performed by [facility] ACCOUNT BILL Comment:Higinio Mckeon ytotechnologist (ASCP) Comment . [facility] ACCOUNT BILL Note [facility] ACCOUNT BILL Comment: The Pap smear is a screening test designed to aid in the detection of premalignant and malignant conditions of the uterine cervix. It is not a diagnostic procedure and should not be used as the sole means of detecting cervical cancer. Both false-positive and false-negative reports do occur. . IGLBP CPT Code Automation [facility] ACCOUNT BILL Comment: This liquid based ThinPrep(R) pap test was screened with the use of an image guided system. Human papillomavirus Aptima Negative Negative [facility] ACCOUNT BILL Comment: This nucleic acid amplification test detects fourteen high-risk HPV types (16,18,31,33,35,39,45,51,52,56,58,59,66,68) without differentiation. Pathology/Cytolog y ENTIRE VAGINA / Unknown 07/19/2020 3:57 PM ALL TERRAIN VEHICLE TECHNICIAN 07/19/2020 Narrative [facility] ACCOUNT BILL - 07/23/2020 11:07 AM ALL TERRAIN VEHICLE TECHNICIAN No. of containers..01 ThinPrep Vial Resulting Agency Comment Lab Testing performed at: [facility] [id number] Shlomo Woodard MD LAB - PATHOLOGY/CYT OLOGY ORDERABLES [facility] ACCOUNT BILL [address] [place] [address] * PAP IG LB + HPV HR (07/18/2019 4:42 PM ALL TERRAIN VEHICLE TECHNICIAN) Only the most recent of4 resultswithin the time period is included. Diagnosis [facility] ACCOUNT BILL Comment:NEGATIVE FOR INTRAEP ITHELIAL LESION OR MALIGNANCY. Specimen Adequacy [facility] ACCOUNT BILL Comment:Satisfactory for dang luation. No endocervical component is identified. Clinician Provided ICD10 [facility] ACCOUNT BILL Comment: Z01.419 N95.1 Z12.11 N83.8 Performed by [facility] ACCOUNT BILL Comment:Yelitza magdaleno, Publishing Director (ASCP) Comment . [facility] ACCOUNT BILL Note [facility] ACCOUNT BILL Comment: The Pap smear is a screening test designed to aid in the detection of premalignant and malignant conditions of the uterine cervix. It is not a diagnostic procedure and should not be used as the sole means of detecting cervical cancer. Both false-positive and false-negative reports do occur. . IGLBP CPT Code Automation [facility] ACCOUNT BILL Comment: This liquid based ThinPrep(R) pap test was screened with the use of an image guided system. Human papillomavirus High Risk Negative Negative [facility] ACCOUNT BILL Comment: This nucleic acid amplification high-risk HPV test detects thirteen high-risk types (16,18,31,33,35,39,45,51,52,56,58,59,68) without differentiation. Pathology/Cytolog y ENTIRE VAGINA / Unknown 07/18/2019 4:42 PM ALL TERRAIN VEHICLE TECHNICIAN 07/19/2019 Narrative [facility] ACCOUNT BILL - 07/20/2019 11:09 AM ALL TERRAIN VEHICLE TECHNICIAN No. of containers..01 ThinPrep Vial Resulting Agency Comment Lab Testing performed at: [facility] [id number] Shlomo Woodard MD LAB - PATHOLOGY/CYT OLOGY ORDERABLES [facility] ACCOUNT BILL [address] [place] [place] [address] * WET PREP SMEAR - POINT OF CARE (07/15/2018) Clue Cells (Wet Smear) POCT neg Yeast (Wet Smr) neg Trichomonads Wet Smear POCT neg WBC (Wet Smr) Lactobacilli (Wet Smear) Whiff Test (Wet Smr) neg pH Wet Smear RBC Wet Smear POCT Other ENTIRE VAGINA / Unknown 07/15/2018 Shlomo Woodard MD LAB - POINT OF CARE ORDERABLES * US TRANSVAG ONLY (01/13/2018 2:58 PM CDT) Only the most recent of5 resultswithin the time period is included. Anatomical Region Laterality Modality Ultrasound Narrative 01/13/2018 2:58 PM CDT Shlomo Woodard MD 01/13/2018 2:58 PM [facility] MANAGER OF ALLIED HEALTH SERVICES [employer] PELVIC ULTRASOUND Pt. Name: Estefani Zamudio : 1955 Exam Date: 01/13/2018 LMP: No LMP recorded. Patient has had a hysterectomy. Referring Physician: Ravinder Woodard Reason for Scan: Follow up ov cyst Transabdominal: No Transvaginal: Yes Uterine orientation: Surg absent Left Ovary: Surg absent Right Ovary: Length 2.94 cm. Width 1.24 cm. Height 0.88 cm. Volume 1.680 cc Cul de Sac: Negative for free fluid. Two anechoic masses on the right ovary, 0.4cm and 0.3cm. Color doppler used. Physician Interpretation: The uterus is not seen consistent with her history of previous surgically removal. The left ovary is not seen consistent with her history or prior surgical removal. The right ovary is seen and is normal in size and contains two anechoic masses measuring 0.4 and 0.3 cms in mean diameter. Since her US in October 2016 there has been no change in the size or appearance of her masses which were 0.34 and 0.38 cms in mean diameter. The masses have a benign appearance based on negative doppler color flow. There is no free fluid present in the pelvis. Asp Developer: Gloria Hua RDMS, RT(R) Images will be scanned into the record. Interpreting Physician: Ravinder Woodard Shlomo Woodard MD US ORDERABLES * OCCULT BLOOD FECES 1-3 SCREEN POC (AMB) STL (07/13/2017) Only the most recent of2 resultswithin the time period is included. Occult Blood 1 neg Negative Occult Blood 2 Negative Occult Blood 3 Negative Card Lot Number z Card Exp Date z Yes Developer Lot Number z Developer Expiration Date zz Yes QC Negative z Negative QC Positive z Stool STOOL SPECIMEN / Unknown 07/13/2017 Shlomo Woodard MD LAB - POINT OF CARE ORDERABLES * US PELVIS COMPLETE (07/07/2016 2:35 PM ALL TERRAIN VEHICLE TECHNICIAN) Anatomical Region Laterality Modality Pelvis Ultrasound Narrative 07/07/2016 2:35 PM ALL TERRAIN VEHICLE TECHNICIAN Gloria Hua 07/07/2016 2:[address] [facility] MANAGER OF ALLIED HEALTH SERVICES [employer] P[facility] ULTRASOUND Pt. Name: Estefani Zamudio : 1955 Exam Date: 07/07/2016 LMP: No LMP recorded. Patient has had a hysterectomy. Referring Physician: Ravinder Woodard Reason for Scan: RLQ pain Transabdominal: No Transvaginal: Yes Uterine orientation: Surg absent Left Ovary: Surgically absent Right Ovary: Length 2.39 cm. Width 1.06 cm. Height 1.29 cm. Volume 1.711 cc Cul de Sac: Negative for free fluid Comments: Two anechoic masses, 0.28cm and 0.38cm Asp Developer: Gloria Hua RDMS, RT(R) Images will be scanned into the record. Interpreting Physician: Ravinder Woodard Shlomo Woodard MD US ORDERABLES * MAMMO SCREENING BILATERAL (06/06/2016) Anatomical Region Laterality Modality Breast Mammography Scanned Document MAMMO ORDERABLES Care Teams Configuration Technician Relationship Specialty Start Date End Date Paul Parra MD 1958 [place] [address] PCP - General Internal Medicine 06/19/16 Shlomo Woodard MD [address] [phone] Obstetrics and Gynecology 01/14/21
== END 2024-08-22 15:00 | disposition home or self-care (01) ==
PROVIDERS: PCP Internal Medicine; Visit Provider Internal Medicine
DX: M25.532 Pain in left wrist (principal); M79.645 Pain in left finger(s)
CPT/HCPCS: 73100; 73120

== ENCOUNTER 2025-05-17 10:48 | Outpatient (CLI) | payer MEDICARE, SELFPAY ==
--- NOTE | ~2025-05-17 | MM_ITS ---
EXAMINATION: MM screening luis a BI w young HISTORY: Screening TECHNIQUE: Craniocaudal and mediolateral oblique 3-D tomosynthesis images were obtained and synthetic 2-D images were generated. CAD analysis was submitted and interpreted. COMPARISON: Comparison to multiple prior studies sequentially, with oldest reviewed study dated 06/08/2017. BREAST PARENCHYMAL COMPOSITION: Not Dense: There are scattered areas of fibroglandular density. FINDINGS: There is no evidence of suspicious mass, calcification, or architectural distortion to suggest malignancy in either breast. Scattered benign-appearing calcifications are present. IMPRESSION: 1. No mammographic evidence of malignancy. 2. Recommend routine screening mammography in one year. BI-RADS Category 2: Benign finding(s). Reviewed, dictated and finalized at location B.
== END 2025-05-17 10:49 | disposition home or self-care (01) ==
LOC: MICIMG 10:49
PROVIDERS: PCP Obstetrics & Gynecology; Visit Provider Internal Medicine
DX: Z12.31 Encounter for screening mammogram for malignant neoplasm of breast (principal)
CPT/HCPCS: 77063; 77067